=== PATIENT | female | born 1965 | race Caucasian/White ===

== ENCOUNTER 2017-12-05 13:26 | Emergency (ER) | payer OTHER ==
--- NOTE | 2017-12-05 14:34 | EDPHY ---
H & P Time Seen by Provider: 12/05/17 13:53 HPI/ROS: CHIEF COMPLAINT: Lightheadedness, multiple complaints HISTORY OF PRESENT ILLNESS: Patient is a 52-year-old female who reports having a non-differentiated connective tissue disease, small vessel vasculitis and EPV who presents emergency department multiple complaints. The patient states that she is here today because she has been feeling mildly lightheaded. She has also had a mild diffuse headache. She also feels bilateral leg heaviness and feet tingling. Patient reports that she has had a diagnosis of neuropathy and has had feet tingling for some time. The patient also feels as though her " head is cold". These symptoms started over 1 year ago. Patient has had mild suprapubic pressure. No dysuria frequency. No fevers or chills. No flank pain. No abdominal pain. Patient states that she was diagnosed with a pneumonia infection via lab studies because"my white count was low"in March. Patient has an appointment with her electromechanical inspector on Wednesday. No visual change. No neck stiffness. REVIEW OF SYSTEMS: 10 systems were reveiwed and are negative with the exception of the elements mentioned in the hisotry of present illness. 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 Smoking Status: Never smoked Physical Exam: Vitals noted GENERAL: Well-appearing, in no acute distress, alert. HEENT: Eyes normal to inspection, normal pharynx, no signs of dehydration. NECK: Normal, supple. RESPIRATORY: Clear to auscultation bilaterally, no rales, rhonchi or wheezing. CVS: Regular rate and rhythm, no rubs, murmurs, or gallops. ABDOMEN: Soft, nontender, nondistended, no organomegaly. BACK: Normal to inspection, no CVA tenderness. SKIN: Normal color, no rash, warm, dry. No pallor. No petechiae. (patient showed me pictures of previous skin lesions. She states these have resolved.) EXTREMITIES: No pedal edema, no calf tenderness, no Homans sign or cords, no joint swelling. NEURO/PSYCH: Higher functions: Alert and Oriented x3. Normal speech and cognition. Normal mood and affect. Cranial nerves: Normal as tested. Cerebellar: Normal as tested. Good finger to nose, good [id number], normal gait. Peripheral exam: Normal motor exam. Normal sensation. Normal reflexes. Constitutional: Initial Vital Signs Heart Rate 82 12/05/17 13:33 Respiratory Rate 18 12/05/17 13:33 Blood Pressure 115/77 12/05/17 13:33 O2 Sat (%) 94 12/05/17 13:33 O2 Delivery Mode Room Air Allergies/Adverse Reactions: codeine Allergy (Mild, Verified 12/05/17 13:38) GI upset Sulfa (Sulfonamide Antibiotics) Allergy (Mild, Verified 12/05/17 13:38) GI upset Home Medications: Medication Instructions Recorded Hydroxychloroquine Sulfate 200 mg PO 12/05/17 [Plaquenil 200 mg (*)] Medical Decision Making - Diagnostics Imaging Results: Imaging Impressions Chest X-Ray 12/05/17 14:35 Impression: No evidence for acute cardiopulmonary abnormality. Head CT 12/05/17 14:36 Impression: Normal. Results called and discussed with Dr. Sofy Marino at 12/05/2017 15:29. ED Course/Re-evaluation: In the emergency department I discussed possible etiologies with the patient. Answered all her questions. IV was placed. Laboratory studies, EKG, chest x- ray and urine were ordered. Head CT was ordered for the patient's dizziness and head symptoms. EKG shows normal sinus rhythm, normal rate, normal axis, normal intervals. There are no ST or T-wave abnormalities. EKG is normal as interpreted by me. Patient's white count is normal at 4.47. Hematocrit is 38.9. Platelets are 273. Chemistry panel is unremarkable. Anion gap is 6. Coags are normal. Head CT: Please refer the dictated report by Dr. Tabor. No acute disease noted. I still awaiting urine results. UA negative. Chest x-ray: No acute disease 1625: I discussed the results with the patient. I answered all her questions. She was given warnings prior to leaving. She will return with worsening symptoms. Differential Diagnosis: My differential includes but is not limited to bacteremia, sepsis, urinary tract infection, pneumonia, ACS, acute [place], dysrhythmia, subarachnoid hemorrhage , subdural hematoma, epidural hematoma, CVA, dissection, aneurysm - Data Points Laboratory Results: Laboratory Results 12/05/17 14:35 12/05/17 14:35 12/05/17 12/05/17 12/05/17 15:40 14:49 14:35 WBC RBC Hgb Hct MCV MCH MCHC RDW Plt Count MPV Neut % (Auto) Lymph % (Auto) Starr % (Auto) Eos % (Auto) Baso % (Auto) Nucleat RBC Rel Count Absolute Neuts (auto) Absolute Lymphs (auto) Absolute Monos (auto) Absolute Eos (auto) Absolute Basos (auto) Absolute Nucleated RBC Immature Gran % Seg Neutrophils % Band Neutrophils % Lymphocytes % Monocytes % Eosinophils % Basophils % Metamyelocytes % Myelocytes % Promyelocytes % Blast Cells % Immature Gran # Absolute Seg Neuts Absolute Band Neuts Absolute Lymphocytes Absolute Monocytes Absolute Eosinophils Absolute Basophils Absolute Metamyelocyte Absolute Myelocytes Absolute Promyelocytes Absolute Plasma Cells Nucleated RBCs Atypical Lymphocytes Absolute Blast Cells Plasma Cells % Platelet Estimate PT INR APTT Sodium 140 mEq/L mEq/L (135-145) Potassium 3.9 mEq/L mEq/L (3.3-5.0) Chloride 108 mEq/L mEq/L (97-110) Carbon Dioxide 26 mEq/l mEq/l (22-31) Anion Gap 6 mEq/L L mEq/L (8-16) BUN 13 mg/dL mg/dL (7-23) Creatinine 0.6 mg/dL mg/dL (0.6-1.0) Estimated GFR > 60 Glucose 91 mg/dL mg/dL (70-100) Calcium 9.5 mg/dL mg/dL (8.5-10.4) Total Bilirubin 0.2 mg/dL mg/dL (0.1-1.4) Conjugated Bilirubin 0.0 mg/dL mg/dL (0.0-0.5) Unconjugated Bilirubin 0.2 mg/dL mg/dL (0.0-1.1) AST 34 IU/L IU/L (14-46) ALT 42 IU/L IU/L (9-52) Alkaline Phosphatase 59 IU/L IU/L (38-126) POC Troponin I 0.02 ng/mL ng/mL (0.00-0.08) Total Protein 6.2 g/dL L g/dL (6.3-8.2) Albumin 3.9 g/dL g/dL (3.5-5.0) Lipase 115 IU/L IU/L (23-300) Urine Color PALE YELLOW Urine Appearance CLEAR Urine pH 6.0 (5.0-7.5) Ur Specific [place] 1.005 (1.002-1.030) Urine Protein NEGATIVE (NEGATIVE) Urine Ketones NEGATIVE (NEGATIVE) Urine Blood NEGATIVE (NEGATIVE) Urine Nitrate NEGATIVE (NEGATIVE) Urine Bilirubin NEGATIVE (NEGATIVE) Urine Urobilinogen NEGATIVE EU EU (0.2-1.0) Ur Leukocyte Esterase NEGATIVE (NEGATIVE) Urine RBC NONE SEEN /hpf /hpf (0-3) Urine WBC 0-1 /hpf /hpf (0-3) Ur Epithelial Cells TRACE /lpf /lpf (NONE-1+) Urine Mucus TRACE /lpf /lpf (NONE-1+) Urine Glucose NEGATIVE (NEGATIVE) 12/05/17 12/05/17 14:35 14:35 WBC 4.47 10^3/uL 10^3/uL (3.80-9.50) RBC 4.28 10^6/uL 10^6/uL (4.18-5.33) Hgb 13.4 g/dL g/dL (12.6-16.3) Hct 38.9 % % (38.0-47.0) MCV 90.9 fL fL (81.5-99.8) MCH 31.3 pg pg (27.9-34.1) MCHC 34.4 g/dL g/dL (32.4-36.7) RDW 12.7 % % (11.5-15.2) Plt Count 273 10^3/uL 10^3/uL (150-400) MPV 10.2 fL fL (8.7-11.7) Neut % (Auto) Not Reported Lymph % (Auto) Not Reported Starr % (Auto) Not Reported Eos % (Auto) Not Reported Baso % (Auto) Not Reported Nucleat RBC Rel Count Not Reported Absolute Neuts (auto) Not Reported Absolute Lymphs (auto) Not Reported Absolute Monos (auto) Not Reported Absolute Eos (auto) Not Reported Absolute Basos (auto) Not Reported Absolute Nucleated RBC Not Reported Immature Gran % Not Reported Seg Neutrophils % 67.3 % % Band Neutrophils % 1.0 % % Lymphocytes % 27.6 % % Monocytes % 3.1 % % Eosinophils % 0.0 % % Basophils % 1.0 % % Metamyelocytes % 0.0 % % Myelocytes % 0.0 % % Promyelocytes % 0.0 % % Blast Cells % 0.0 % % Immature Gran # Not Reported Absolute Seg Neuts 3.01 10^/uL 10^/uL (1.70-6.50) Absolute Band Neuts 0.04 10^3/uL 10^3/uL (0.00-0.70) Absolute Lymphocytes 1.23 10^3/uL 10^3/uL (1.00-3.00) Absolute Monocytes 0.14 10^3/uL L 10^3/uL (0.30-0.80) Absolute Eosinophils 0.00 10^3/uL L 10^3/uL (0.03-0.40) Absolute Basophils 0.04 10^3/uL 10^3/uL (0.02-0.10) Absolute Metamyelocyte 0.00 10^3/mL 10^3/mL (0.00-0.00) Absolute Myelocytes 0.00 10^3/mL 10^3/mL (0.00-0.00) Absolute Promyelocytes 0.00 10^3/uL 10^3/uL (0.00-0.00) Absolute Plasma Cells 0.00 10^3/uL 10^3/uL (0.00-0.00) Nucleated RBCs 0 /100 WBC /100 WBC (0-0) Atypical Lymphocytes 1+ H Absolute Blast Cells 0.00 10^3/uL 10^3/uL (0.00-0.00) Plasma Cells % 0.0 % % Platelet Estimate ADEQUATE (ADEQ) PT 12.0 SEC SEC (12.0-15.0) INR 0.87 (0.83-1.16) APTT 29.2 SEC SEC (23.0-38.0) Sodium Potassium Chloride Carbon Dioxide Anion Gap BUN Creatinine Estimated GFR Glucose Calcium Total Bilirubin Conjugated Bilirubin Unconjugated Bilirubin AST ALT Alkaline Phosphatase POC Troponin I Total Protein Albumin Lipase Urine Color Urine Appearance Urine pH Ur Specific [place] Urine Protein Urine Ketones Urine Blood Urine Nitrate Urine Bilirubin Urine Urobilinogen Ur Leukocyte Esterase Urine RBC Urine WBC Ur Epithelial Cells Urine Mucus Urine Glucose Medications Given: Discontinued Medications Sodium Chloride (Ns) 500 mls @ 1,000 mls/hr IV EDNOW ONE PRN Reason: Protocol Stop: 12/05/17 15:04 Last Admin: 12/05/17 14:46 Dose: 500 mls Point of Care Test Results: Chemistry 12/05/17 14:49 POC Troponin I 0.02 ng/mL ng/mL (0.00-0.08) Departure - Departure Disposition: Home, Routine, Self-Care Clinical Impression: Lightheadedness Condition: Good Instructions: Lightheadedness (ED) Additional Instructions: Return with increasing dizziness, headache, lightheadedness, shortness of breath or any other concerns. Your head CT and chest x-ray were unremarkable. Referrals: Ashley Swanson MD [Primary Care Provider] - 2-3 days, if not improved
[2017-12-05] MEDS ORDERED: NS 500 ML IV ONE (14:35)
[2017-12-05 14:42] LABS: PLATELET COUNT 273 10^3/uL (150-400)
[2017-12-05 14:49] LABS: INR 0.87 (0.83-1.16)
[2017-12-05 16:24] VITALS: BP 101/65
--- NOTE | 2017-12-05 20:17 | CPEKG ---
Test Reason : OPEN Blood Pressure : / mmHG Vent. Rate : 067 BPM Atrial Rate : 066 BPM P-R Int : 142 ms QRS Dur : 087 ms QT Int : 401 ms P-R-T Axes : 083 074 061 degrees QTc Int : 424 ms Sinus rhythm Low voltage, precordial leads Confirmed by Sofy Marino ([id number]) on 12/05/2017 8:17:07 PM Referred By: Confirmed By:Sofy Marino
== END 2017-12-05 16:52 | disposition home or self-care (01) ==
DX: R42 Dizziness and giddiness (principal); R51 Headache; R20.2 Paresthesia of skin
CPT/HCPCS: 84484-PO